=== PATIENT | male | born 1970 | race Caucasian/White ===

== ENCOUNTER 2018-04-29 11:15 | Emergency (ER) | payer SELFPAY ==
[2018-04-29 11:28] VITALS: BP 143/81
--- NOTE | 2018-04-29 12:06 | UC ---
Respiratory Complaint HPI - HPI Summary HPI Summary: 47 yo male presents with dry cough for the last 2 weeks. Getting progressively worse and feeling fatigued. He has a hx of PNA and says that this feels the same. His roommate was also recently dx'd with PNA. Pt has felt warm at times, but has not taken his temperature. Denies chills, sore throat, sinus symptoms, SOB, chest pain, n/v - History of Current Complaint Chief Complaint: UCRespiratory Stated Complaint: COUGH, AND CHEST CONGESTION Time Seen by Provider: 04/29/18 12:05 Hx Obtained From: Patient Timing: Constant Severity Initially: Mild Severity Currently: Mild Pain Intensity: 4 Pain Scale Used: 0-10 Numeric Character: Cough: Nonproductive - Allergies/Home Medications Allergies/Adverse Reactions: Allergies Allergy/AdvReac Type Severity Reaction Status Date / Time haloperidol [From Haldol] Allergy Swelling Verified 04/29/18 11:28 Home Medications: Home Medications Amiloride HCl 1 tab PO DAILY 04/29/18 [History Confirmed 04/29/18] Aspirin 81 mg CHEW TAB* 1 tab PO DAILY 04/29/18 [History Confirmed 04/29/18] Crestor (NF) 1 tab PO DAILY 04/29/18 [History Confirmed 04/29/18] Dm/P-Ephed/Acetaminoph/Doxylam [Sm Nite Time Cold-Flu Liquid] 180 ml PO ONCE PRN 04/29/18 [History Confirmed 04/29/18] Multivitamin [Animal Shapes] 1 each PO DAILY 04/29/18 [History Confirmed ] Potassium Citrate [Urocit-K 15] 15 meq PO TID 04/29/18 [History Confirmed ] buPROPion HCl [Wellbutrin Sr] 75 mg PO QAM 04/29/18 [History Confirmed 04/29/18] diazePAM [Valium] 5 mg PO BID PRN 04/29/18 [History Confirmed 04/29/18] hydrOXYzine pamoate [Vistaril] 50 mg PO BID 04/29/18 [History Confirmed 04/29/18 ] PMH/Surg Hx/FS Hx/Imm Hx Psychological History: Anxiety, Depression - Surgical History Surgical History: Yes - Family History Known Family History: Positive: None - Social History Occupation: Employed Full-time Lives: With Family Alcohol Use: None Substance Use Type: None Smoking Status (MU): Never Smoked Tobacco Review of Systems All Other Systems Reviewed And Are Negative: Yes Constitutional: Positive: Negative Skin: Positive: Negative Eyes: Positive: Negative ENT: Positive: Negative Respiratory: Positive: Cough Cardiovascular: Positive: Negative Gastrointestinal: Positive: Negative Neurovascular: Positive: Negative Neurological: Positive: Negative Psychological: Positive: Negative Physical Exam - Summary Physical Exam Summary: GENERAL: NAD. WDWN. No pain distress. SKIN: No rashes, sores, lesions, or open wounds. HEENT: Head: AT/NC Eyes: EOM intact. Conjunctiva clear without inflammation or discharge. Ears: Hearing grossly normal. TMs intact, no bulging, erythema, or edema. Nose: Nasal mucosa pink and moist. NTTP maxillary and frontal sinus. Throat: Posterior oropharynx without exudates, erythema, or tonsillar enlargement. Uvula midline. NECK: Supple. Nontender. No lymphadenopathy. CHEST: CTAB. No r/r/w. No accessory muscle use. Breathing comfortably and in no distress. CV: RRR. Without m/r/g. Pulses intact. Cap refill <2seconds NEURO: Alert. PSYCH: Age appropriate behavior. Triage Information Reviewed: Yes Vital Signs: Initial Vital Signs Temp 98 F 04/29/18 11:25 Pulse 85 04/29/18 11:25 Resp 16 04/29/18 11:25 BP 143/81 04/29/18 11:25 Pulse Ox 98 04/29/18 11:25 Vital Signs Reviewed: Yes UC Diagnostic Evaluation - Laboratory O2 Sat by Pulse Oximetry: 98 Respiratory Course/Dx - Course Course Of Treatment: CXR: IMPRESSION: MINIMAL PATCHY AIRSPACE DISEASE OF THE RIGHT MIDLUNG WHICH MAY REPRESENT EARLY. CONSOLIDATION. RECOMMEND FOLLOW-UP UNTIL RESOLUTION TO EXCLUDE UNDERLYING PULMONARY. PARENCHYMAL PATHOLOGY. Suspect PNA given clinical picture and pt's hx of pneumonia. Will treat with zpak and have him f/u with his PCP - Differential Dx/Diagnosis Provider Diagnosis: Pneumonia Discharge - Sign-Out/Discharge Documenting (check all that apply): Patient Departure All imaging exams completed and their final reports reviewed: Yes - Discharge Plan Condition: Stable Disposition: HOME Prescriptions: Azithromycin TAB* [Zithromax TAB (Z-HERMELINDO) 250 mg #6 tabs] 2 tab PO .TODAY, THEN 1 DAILY #1 hermelindo Patient Education Materials: Bacterial Pneumonia (DC) Referrals: No Primary Care Phys,NOPCP [Primary Care Provider] - Additional Instructions: If you develop a fever, shortness of breath, chest pain, new or worsening symptoms - please call your PCP or go to the ED. Your blood pressure was high at todays visit. Please see your primary provider within 4 weeks for recheck and re-evaluation. - Billing Disposition and Condition Condition: STABLE Disposition: Home
== END 2018-04-29 13:48 | disposition home or self-care (01) ==
LOC: UCEAST 11:15
DX: J18.9 Pneumonia, unspecified organism (principal); F32.9 Major depressive disorder, single episode, unspecified; F41.9 Anxiety disorder, unspecified; Z79.899 Other long term (current) drug therapy; Z88.8 Allergy status to other drugs, medicaments and biological substances; Z79.82 Long term (current) use of aspirin
CPT/HCPCS: 71046; 99202; G0463

== ENCOUNTER 2018-05-03 12:14 | Emergency (ER) | payer SELFPAY ==
[2018-05-03 12:39] VITALS: BP 154/85
--- NOTE | 2018-05-03 14:15 | UC ---
Respiratory Complaint HPI - HPI Summary HPI Summary: 47-year-old male presents for recheck of right middle lobe pneumonia. He was seen at this facility on 04/29/2018 and started on a course of Zithromax which he states he finished today. States his symptoms have been improving but he is concerned because the cough is persisting. Denies fever, chills, chest pain, shortness of breath, abdominal pain, nausea, or vomiting. - History of Current Complaint Chief Complaint: UCRespiratory Stated Complaint: RESP COMPLAINT Time Seen by Provider: 05/03/18 14:10 Hx Obtained From: Patient Pain Intensity: 2 - Allergies/Home Medications Allergies/Adverse Reactions: Allergies Allergy/AdvReac Type Severity Reaction Status Date / Time haloperidol [From Haldol] Allergy Swelling Verified 05/03/18 12:39 PMH/Surg Hx/FS Hx/Imm Hx Endocrine History: Dyslipidemia Respiratory History: Pneumonia Other Respiratory History: ALEYDA GI/ History: Kidney Stones Psychological History: Anxiety, Depression - Surgical History Surgical History: Yes Surgery Procedure, Year, and Place: soft palette removed, tonsillectomy - Family History Known Family History: Positive: Non-Contributory - Social History Occupation: Unemployed Lives: Alone Alcohol Use: None Substance Use Type: None Smoking Status (MU): Never Smoked Tobacco Review of Systems All Other Systems Reviewed And Are Negative: Yes Constitutional: Positive: Fatigue. Negative: Fever, Chills Eyes: Negative: Drainage, Eye Redness ENT: Negative: Sore Throat, Ear Ache, Nasal Discharge, Sinus Congestion, Sinus Pain/Tenderness Respiratory: Positive: Cough. Negative: Shortness Of Breath Cardiovascular: Negative: Palpitations, Chest Pain Gastrointestinal: Negative: Abdominal Pain, Vomiting, Diarrhea, Nausea Is Patient Immunocompromised?: No Physical Exam - Summary Physical Exam Summary: GENERAL APPEARANCE: Well developed, well nourished, alert and cooperative, and appears to be in no acute distress. EYES: Conjunctiva clear. No discharge. Vision is grossly intact. EARS: External auditory canals and tympanic membranes clear, hearing grossly intact. NOSE: No nasal discharge. THROAT: Oral cavity and pharynx normal. No inflammation, swelling, exudate, or lesions. Teeth and gingiva in good general condition. NECK: Neck supple, non-tender without lymphadenopathy. CARDIAC: Normal S1 and S2. No S3, S4 or murmurs. Rhythm is regular. There is no peripheral edema, cyanosis or pallor. Extremities are warm and well perfused. Capillary refill is less than 2 seconds. LUNGS: Clear to auscultation and percussion without rales, rhonchi, wheezing or diminished breath sounds. ABDOMEN: Positive bowel sounds. Soft, nondistended, nontender. No guarding or rebound. No masses or hepatosplenomegally. MUSKULOSKELETAL: ROM intact to all extremities. No joint erythema or tenderness. Normal muscular development. Normal gait. SKIN: Skin normal color, texture and turgor with no lesions or eruptions. Vital Signs: Initial Vital Signs Temp 97.5 F 05/03/18 12:34 Pulse 92 05/03/18 12:34 Resp 16 05/03/18 12:34 BP 154/85 05/03/18 12:34 Pulse Ox 99 05/03/18 12:34 Diagnostic Evaluation - Laboratory O2 Sat by Pulse Oximetry: 99 Respiratory Course/Dx - Course Course Of Treatment: 47-year-old male presents for recheck of right middle lobe pneumonia. He was seen at this facility on 04/29/2018 and started on a course of Zithromax which he states he finished today. States his symptoms have been improving but he is concerned because the cough is persisting. Denies fever, chills, chest pain, shortness of breath, abdominal pain, nausea, or vomiting. Afebrile. Vital signs stable. Exam was unremarkable. Patient was counseled that his symptoms may persist for a couple weeks even with the treatment. Not recommending any additional antibiotics at this time. He was given the number for the [facility] physician referral service to assist him with establishing with a primary care provider for follow-up. Warning symptoms were reviewed with the patient. He verbalizes understanding and agrees with plan of care. - Differential Dx/Diagnosis Differential Diagnosis/HQI/PQRI: Bronchitis, Influenza, Lower Resp Infection Provider Diagnosis: RML pneumonia, Elevated blood pressure reading Discharge - Sign-Out/Discharge Documenting (check all that apply): Patient Departure All imaging exams completed and their final reports reviewed: No Studies - Discharge Plan Condition: Stable Disposition: HOME Patient Education Materials: Pneumonia (ED) Referrals: No Primary Care Phys,NOPCP [Primary Care Provider] - [facility] [place] [facility]IAN REFERRAL [Outside] Additional Instructions: Your x-ray from 04/29/2018 showed an early consolidation of the right middle lung which is likely an pneumonia. You were started on an appropriate antibiotic at that time therefore no further antibiotics are needed. Be aware that it takes several weeks to fully recover from pneumonia even after appropriate treatment. Your blood pressure was elevated in the clinic today. It is recommended that you have this rechecked by a primary care provider within 4 weeks. I have given you the number to the [facility] Physician Referral Service to assist you with establishing with a primary care provider. I would recommend that you do this so that you can also have the pneumonia rechecked. Seek immediate medical attention in the emergency room if you have persistent fever greater than 100.5 F, you have chest pain, increased shortness of breath, you become weak or dizzy, or have any worsening of symptoms. - Billing Disposition and Condition Condition: STABLE Disposition: Home
== END 2018-05-03 14:35 | disposition home or self-care (01) ==
LOC: UCEAST 12:14
DX: J18.9 Pneumonia, unspecified organism (principal); R03.0 Elevated blood-pressure reading, without diagnosis of hypertension; Z88.8 Allergy status to other drugs, medicaments and biological substances
CPT/HCPCS: 99211; G0463